=== PATIENT | female | born 1945 | race Caucasian/White ===

== ENCOUNTER 2020-06-02 07:52 | Inpatient (IN) ==
--- NOTE | 2020-05-22 13:05 | PAT Medication Instructions ---
Medication Instructions Date of Service May 22, 2020 Home Medications albuterol sulfate 1 puff INHALATION Q6H PRN aspirin [Aspir-81] 81 mg PO QAM ergocalciferol (vitamin D2) [Vitamin D2] 10 mcg PO QAM ezetimibe 10 mg PO QPM furosemide 40 mg PO Q2D gabapentin 100 mg PO BID hydralazine 50 mg PO BID metoprolol tartrate 25 mg PO BID mycophenolate mofetil 250 mg PO BID ondansetron 4 mg PO Q8H PRN pantoprazole 40 mg PO QAM simvastatin 40 mg PO PM tacrolimus 0.5 mg PO QAM tacrolimus 1 mg PO QPM umeclidinium-vilanterol [Anoro Ellipta] 1 inh INHALATION QAM DO NOT take the morning of surgery ergocalciferol (vitamin D2) [Vitamin D2] 10 mcg PO QAM furosemide 40 mg PO Q2D Take morning of surgery With a small sip of water, OTHERWISE NOTHING TO EAT OR DRINK AFTER MIDNIGHT: albuterol sulfate 1 puff INHALATION Q6H PRN (if needed) aspirin [Aspir-81] 81 mg PO QAM (unless otherwise instructed by surgeon) gabapentin 100 mg PO BID hydralazine 50 mg PO BID metoprolol tartrate 25 mg PO BID mycophenolate mofetil 250 mg PO BID ondansetron 4 mg PO Q8H PRN (if needed) pantoprazole 40 mg PO QAM tacrolimus 0.5 mg PO QAM umeclidinium-vilanterol [Anoro Ellipta] 1 inh INHALATION QAM Take evening before surgery albuterol sulfate 1 puff INHALATION Q6H PRN (if needed) ezetimibe 10 mg PO QPM gabapentin 100 mg PO BID hydralazine 50 mg PO BID metoprolol tartrate 25 mg PO BID mycophenolate mofetil 250 mg PO BID ondansetron 4 mg PO Q8H PRN (if needed) simvastatin 40 mg PO PM tacrolimus 1 mg PO QPM Other Notes If you have any questions please call us at [phone] or [phone] or [phone] or [phone]
--- NOTE | 2020-05-23 13:29 | Anesthesiology Consultation ---
Date of Service May 23, 2020 Assessment & Plan (1) Encounter for pre-operative examination: COVID Status: As of 05/23 assessment, patient denies travel to endemic area, known exposure/sick contacts, or symptoms of COVID19. Patient instructed that they and their household members must follow strict social distancing guidelines, wear a mask in public and avoid travel for 14 days prior to surgery. Preoperative COVID19 testing to be completed prior to surgery per surgeon's arr angements. Patient made aware to self-isolate as much as possible between COVID testing and surgery. *Hx of PONV* Chart Review Chart Review: Acceptable Risk for Surgery (pending surgeon ordered PCP and cardio clearances) and Patient seen in Pre Admission Testing Teaching & Discussion Instructed NPO after midnight before surgery, except medications with 15 cc of water. Medication instructions provided according to the PAT guidelines. History Surgery Operation Date: 06/02/20 10:05 Proposed Procedures p L3-L5 Decompression and Fusion, Left L4-L5 Discectomy; Spinal Cord Monitoring - Phi Vizcarra DO Height/Weight Height: 5 ft 1 in Weight: 63.9 kg Allergies Allergy/AdvReac Type Severity Reaction Status Date / Time No Known Allergies Allergy Verified 05/17/20 15:04 Medications Home Medications Medication Instructions Recorded Confirmed Last Taken albuterol sulfate 1 puff INHALATION Q6H PRN 05/17/20 05/17/20 Unknown aspirin [Aspir-81] 81 mg PO QAM 05/17/20 05/17/20 Unknown ergocalciferol (vitamin D2) 10 mcg PO QAM 05/17/20 05/17/20 Unknown [Vitamin D2] ezetimibe 10 mg PO QPM 05/17/20 05/17/20 Unknown furosemide 40 mg PO Q2D 05/17/20 05/17/20 Unknown gabapentin 100 mg PO BID 05/17/20 05/17/20 Unknown hydralazine 50 mg PO BID 05/17/20 05/17/20 Unknown metoprolol tartrate 25 mg PO BID 05/17/20 05/17/20 Unknown mycophenolate mofetil 250 mg PO BID 05/17/20 05/17/20 Unknown ondansetron 4 mg PO Q8H PRN 05/17/20 05/17/20 Unknown pantoprazole 40 mg PO QAM 05/17/20 05/17/20 Unknown simvastatin 40 mg PO PM 05/17/20 05/17/20 Unknown tacrolimus 0.5 mg PO QAM 05/17/20 05/17/20 Unknown tacrolimus 1 mg PO QPM 05/17/20 05/17/20 Unknown umeclidinium-vilanterol [Anoro 1 inh INHALATION QAM 05/17/20 05/17/20 Unknown Ellipta] Past Medical History Medical History Cancer LUNG-S/P LOBECTOMY 01/2020-NO CHEMO/NO RADIATION Chronic back pain TO LEG Depression History of renal failure Pt reports due to bowel prep that has now been taken off the market. Was on dialysis, now S/P renal transplant 2005. Hyperlipidemia Hypertension SOB (shortness of breath) on exertion 1 FLIGHT Exercise / Class Metabolic Activity III < 4 Walking/Shop/Light housework (Denies CP or SOB with ambulation using wa lker due to leg weakness, cannot do stairs) Past Surgical History Surgical History History of colonoscopy Nausea and vomiting after administration of anesthetic agent S/P lobectomy of lung RIGHT 01/2020 [facility] Transplanted kidney 2005 F/U DR KIRAN CANDELARIO Past Anesthesia History No Hx of Anesthesia Complications (other than PONV) and No Family Hx of Anesthesia Complications History of PONV No Hx of Motion Sickness and History of PONV Social History Smoking Status: Light tobacco smoker Do You Dip or Chew Tobacco: No Smoking End Date: 1 -2 CIGS A DAY Hx Alcohol Use: No Hx Substance Use: No Review of Systems Pt denies any recent chest pain, shortness of breath, palpitations, cough, fever, URI, or uncontrolled acid reflux. Physical Exam Vital Signs BP: 131/81 P: 69bpm SPO2: 97% RA T: 98.1 F R: 16 ENMT Mouth: + dentures and + edentulous Thyromental Distance: < 3.5 Finger Breadths (3) Mallampati Class: III Neck normal visual inspection; neck extension not limited Respiratory normal respiratory effort Auscultation: lungs clear to auscultation bilaterally Cardiovascular Rate/Rhythm: regular rate and regular rhythm (with a few ectopic beats) Heart Sounds: no murmur Vessels: no carotid bruit Extremities: no edema Testing Laboratory Results 05/23/20 14:05 05/23/20 14:05 PT 11.1 Seconds (9.0-12.0) 05/23/20 14:05 INR 1.1 (0.9-1.1) 05/23/20 14:05 APTT 29.8 Seconds (21.0-31.0) 05/23/20 14:05 Blood Type A Positive 05/23/20 14:05 Antibody Screen NEGATIVE 05/23/20 14:05 Electrocardiogram Date: 05/23/20 Findings: + NSR @ (68bpm) Left axis deviation. Possible anterior infarct, age undetermined. Nonspecific ST and T wave abnormality. Chest X-Ray Date: 05/23/20 FINDINGS: Postoperative findings within the right hemithorax with volume loss are noted. This suggests a lobectomy. There is no consolidation or evidence for pulmonary edema. Tenting of the right hemidiaphragm is likely due to volume loss. There is a possible trace right pleural effusion. There is mild cardiomegaly without evidence for pulmonary edema. IMPRESSION: 1. No definite acute cardiopulmonary findings. 2. Postoperative findings within the right hemithorax. Possible small right pleural effusion. Echocardiogram Date: 04/14/20 EF: 55-60% Borderline left ventricle size. The left ventricle has normal systolic function. Normal right ventricular size and function. Mild to moderate aortic regurgitation. Aortic valve area is 2.7 cm and the mean gradient is 3 mmHg. Mild mitral regurgitation. Mild mitral annular calcification. The left atrium and right atrium are both mildly enlarged. Grade 1 diastolic dysfunction.
[2020-05-23 14:36] LABS: Basophils # (auto) 0.02 K/uL (0-0.2); Basophils % (auto) 0.4 %; Eosinophils # (auto) 0.02 K/uL (0-0.5); Eosinophils % (auto) 0.4 %; Hematocrit (blood only) 38.2 % (37-47); Hemoglobin 12.1 g/dL (12.0-16.0); Lymphocytes # (auto) 1.69 K/uL (1.2-3.4); Lymphocytes % (auto) 30.5 %; Mean Corpuscular Hemoglobin 28.3 pg (25-34); Mean Corpuscular Hgb Conc 31.7 g/dL (32-36); Mean Corpuscular Volume 89.3 fL (80-100); Mean Platelet Volume 9.9 fL (7.4-10.4); Monocytes # (auto) 0.69 K/uL (0.11-0.59); Monocytes % (auto) 12.5 %; Neutrophils # (auto) 3.12 K/uL (1.4-6.5); Neutrophils % (auto) 56.2 %; Platelet Count 271 K/uL (130-400); RDW Standard Deviation 55.1 fL (36.4-46.3); Red Blood Count 4.28 M/uL (4.2-5.4); White Blood Count 5.54 K/uL (4.8-10.8)
--- NOTE | 2020-05-23 14:41 | XRay Report ---
XR chest Pre-admission PA/Lat CLINICAL HISTORY: Preoperative evaluation. COMPARISON STUDY: No previous studies for comparison. FINDINGS: Postoperative findings within the right hemithorax with volume loss are noted. This suggest s a lobectomy. There is no consolidation or evidence for pulmonary edema. Tenting of the right hemidi aphragm is likely due to volume loss. There is a possible trace right pleural effusion. There is mild cardiomegaly without evidence for pulmonary edema. IMPRESSION: 1. No definite acute cardiopulmonary findings. 2. Postoperative findings within the right hemithorax. Possible small right pleural effusion. ACT 112: Negative or not required by law. Electronically signed by: Ramin Rowan M.D. 05/23/2020 2:40 PM
[2020-05-23 14:52] LABS: INR 1.1 (0.9-1.1); Partial Thromboplastin Ratio 1.1; Partial Thromboplastin Time 29.8 Seconds (21.0-31.0); Prothrombin Time 11.1 Seconds (9.0-12.0)
[2020-05-23 16:12] LABS: BUN Creatinine Ratio 17.1 (10-20); Calcium 9.5 mg/dl (8.5-10.1); Est GFR (African American) 67.5; Est GFR (Non-African American) 58.3; Potassium 4.4 mmol/L (3.5-5.1)
--- NOTE | 2020-05-24 05:58 | Electrocardiogram Report ---
Test Reason : Blood Pressure : / mmHG Vent. Rate : 068 BPM Atrial Rate : 068 BPM P-R Int : 132 ms QRS Dur : 074 ms QT Int : 418 ms P-R-T Axes : 055 -47 118 degrees QTc Int : 444 ms Normal sinus rhythm Left axis deviation Possible Anterior infarct , age undetermined Nonspecific ST and T wave abnormality Abnormal ECG No previous ECGs available Confirmed by Harpal Marshall ([id number]) on 05/24/2020 5:58:05 AM Referred By: Phi Vizcarra Confirmed By:Harpal Marshall
[~2020-06-02 07:52] MED LIST: ACETAMINOPHEN 500 MG TAB PO SCH; CEFAZOLIN 1000MG 1,000 MG/7.5 ML SYR IV SCH; CeleBREX 200 MG CAP PO SCH; GABAPENTIN 300 MG CAP PO SCH; LR 15ML/HR IV SCH
--- NOTE | 2020-06-02 08:41 | History & Physical Bridge Note ---
Date of Service June 02, 2020 History & Physical Bridge Note I have examined the patient, reviewed the History & Physical and in the interval since the performance of the History & Physical I have noted the following changes of clinical significance: no changes noted
--- NOTE | 2020-06-02 08:42 | History & Physical Report ---
Date of Service June 02, 2020 Assessment & Plan (1) Neurogenic claudication due to lumbar spinal stenosis: Admission and Anticipated Discharge Date Admission Date: L3 to L5 decompression fusion, left L4-5 discectomy History of Present Illness Chief Complaint: Back and leg pain Primary Care Provider: Rik Flood MD This is a 75-year-old presents with chronic persistent back and leg pain after failing course of non-care is here for surgical intervention. Allergies Allergy/AdvReac Type Severity Reaction Status Date / Time No Known Allergies Allergy Verified 06/02/20 08:18 Home Medications Home Medications Medication Instructions Recorded Confirmed Type albuterol sulfate 1 puff INHALATION Q6H PRN 05/17/20 05/17/20 History aspirin [Aspir-81] 81 mg PO QAM 05/17/20 06/02/20 History ergocalciferol (vitamin D2) 10 mcg PO QAM 05/17/20 06/02/20 History [Vitamin D2] ezetimibe 10 mg PO QPM 05/17/20 06/02/20 History furosemide 40 mg PO Q2D 05/17/20 06/02/20 History gabapentin 100 mg PO BID 05/17/20 06/02/20 History hydralazine 50 mg PO BID 05/17/20 06/02/20 History metoprolol tartrate 25 mg PO BID 05/17/20 06/02/20 History mycophenolate mofetil 250 mg PO BID 05/17/20 06/02/20 History simvastatin 40 mg PO PM 05/17/20 06/02/20 History tacrolimus 0.5 mg PO QAM 05/17/20 06/02/20 History tacrolimus 1 mg PO QPM 05/17/20 06/02/20 History umeclidinium-vilanterol [Anoro 1 inh INHALATION QAM 05/17/20 06/02/20 History Ellipta] Past Med/Surg History Medical History Cancer LUNG-S/P LOBECTOMY 01/2020-NO CHEMO/NO RADIATION Chronic back pain TO LEG Depression History of renal failure Pt reports due to bowel prep that has now been taken off the market. Was on dialysis, now S/P renal transplant 2005. Hyperlipidemia Hypertension SOB (shortness of breath) on exertion 1 FLIGHT Surgical History History of colonoscopy Nausea and vomiting after administration of anesthetic agent S/P lobectomy of lung RIGHT 01/2020 [facility] Transplanted kidney 2005 F/U DR KIRAN CANDELARIO Social History Smoking Status: Light tobacco smoker Smoking End Date: 1 -2 CIGS A DAY; Second Hand Exposure: Yes (SPOUSE SMOKED); Do You Dip or Chew Tobacco: No; Hx Alcohol Use: No Hx Substance Use: No Preferred Language: Surinamese Communication Ability: Effective Tongue Stitcher Required: No Beliefs That Will Affect Care: None Current Living Situation: Spouse Current Living Situation Comment: LIVES WITH SPOUSE Other Information That Helps Us Care for You: No Feels Safe at Home: Yes Safety Concerns: Feels Safe At This Time Physical Exam Physical Exam: Patient is alert and oriented neurologically intact. Lungs clear to auscultation. Heart regular rate and rhythm.
[2020-06-02] MEDS ORDERED: METOCLOPRAMIDE HCL INJ 5 MG/ML 2 ML VIAL IV PRN ×2 (08:52→12:37)
[2020-06-02] MEDS ORDERED: ePHEDrine sulfate 50 MG/ML AMP IV PRN (08:52)
[2020-06-02] MEDS ORDERED: ATROPINE SULFATE 0.1 MG/ML 10ML SYR IV PRN (08:52)
[2020-06-02] MEDS ORDERED: PROMETHAZINE HCL 12.5 MG in SODIUM CHLORIDE 0.9% 50 ML IV PRN ×2 (08:52→12:37)
[2020-06-02] MEDS ORDERED: HYDROmorphone INJ 1 MG/ML SYRINGE IV PRN ×2 (08:52→12:37)
[2020-06-02] MEDS ORDERED: ONDANSETRON INJ 2 MG/ML 2 ML VIAL IV PRN ×2 (08:52→12:37)
[2020-06-02] MEDS ORDERED: BUPIVACAINE/EPINEPHRINE 0.25% 1:200,000 30 ML VIAL ONE (08:56)
[2020-06-02] MEDS ORDERED: BACITRACIN INJ 50,000 UNIT VIAL ONE (08:57)
[2020-06-02] MEDS ORDERED: PROPOFOL IV EMULSION 10 MG/ML 20 ML VIAL IV ONE (09:06)
[2020-06-02] MEDS ORDERED: LIDOCAINE HCL 2% 2 ML VIAL/AMP(20MG/ML) INFIL ONE (09:06)
[2020-06-02] MEDS ORDERED: MIDAZOLAM HCL 1 MG/ML 2ML VIAL ONE (09:06)
[2020-06-02] MEDS ORDERED: fentaNYL citrate 100 MCG/2 ML VIAL ONE ×2 (09:06)
[2020-06-02] MEDS ORDERED: ROCURONIUM BROMIDE 10 MG/ML 5 ML VIAL IV ONE (09:07)
[2020-06-02] MEDS ORDERED: FLOSEAL HEMOSTATIC MATRIX 10ML TOP ONE (09:56)
[2020-06-02] MEDS ORDERED: ONDANSETRON INJ 2 MG/ML 2 ML VIAL ONE (11:08)
[2020-06-02] MEDS ORDERED: GLYCOPYRROLATE 0.2 MG/ML VIAL ONE (11:08)
[2020-06-02] MEDS ORDERED: NEOSTIGMINE METHYLSULFATE 1 MG/ML 10ML VIAL ONE (11:08)
--- NOTE | 2020-06-02 11:14 | Operative Report ---
Post Operative Report Pre & Post Diagnosis Operation Date: 06/02/20 09:15 Pre-Op Diagnosis: Lumbar spinal stenosis with spondylolisthesis Post-Op Diagnosis: Same I identified the patient and participated in the time-out.: Yes Procedure Operation Date: 06/02/20 09:15 Actual Procedures #1 lumbar decompression with bilateral medial facetectomy foraminotomy L3-4 and L4-5. #2 posterior spinal fusion L3-4. #3 placement posterior instrumentation L3-4 L4-5. #4 interbody fusion L4-5. #5 placement peek cage 12 x 22 mm at L4-5 per #6 placement of locally harvested morselized autograft in the posterior gutters per #7 placement infuse collagen sponge, master graft and posterior gutters ostial amp interbody space. Surgeon Phi Vizcarra, Automated Manufacturing Instructor Shaggy Tejeda Estimated Blood Loss 100 Findings Consistent with Post-Op Diagnosis Specimens None Indications This is a 75-year-old female who presents with above-mentioned diagnosis after failing course of nonoperative care is here for dementia procedure. Description of Procedure Patient was met with identified informed consent obtained. Patient was then taken to the operative suite underwent an patient placed in a prone position the Jimmy table on top [place] frame. All bony prominences well-padded eyes inspected to ensure no external pressure placed upon them. This point the lumbar spine was prepped and draped in a sterile fashion. Sharp dissection the assistance pericardial was performed down to and exposing the lamina and transverse processes of L3-L4-L5 bilaterally. From a caudal cephalad fashion complete laminectomy of L4 and L3 was performed including bilateral medial facetectomies and foraminotomies noting evidence of far lateral disc herniation L4-5 on the left. After complete decompression pedicle screws were then placed in L3-L4 and L5 bilaterally with assistance of fluoroscopy and appropriate size clarissa placed. By way of a trans-foramen approach on the left complete discectomy was performed endplates coated to subcortical bleeding bone and a 12 x 22 mm peek cage filled with osteo-bone graft tapped in position. The rods were then locked in final position bilaterally. Transverse processes of L3 and L4 and L5 bur to subcortical bleeding bone. Infuse collagen sponge master graft local autograft was placed in posterior gutters. 15 round JESSICA drain inserted. Incision was then closed with 1 Vicryl the fascia 2-0 Vicryl subcutaneously and 4 Monocryl for final skin closure. Steri-Strip sterile dressings placed. Patient waken taken to PACU stable condition. Please note spinal cord monitoring visualized at the procedure no changes noted. Lastly Shaggy brock was present throughout the entire surgery involved the patient positioning complex portions of the surgery and final skin closure. I attest to the content of the Intraoperative Record and any orders documented therein. Any exceptions are noted below.
--- NOTE | 2020-06-02 11:41 | Fluoroscopy Report ---
FL lumbar spine 2-3V CLINICAL HISTORY: L3-5 DECOMPRESSION/FUSION/INTERBODY COMPARISON STUDY: None. FLUOROSCOPY TIME: 20 seconds. FINDINGS: 2 fluoroscopic spot images of the lumbar spine demonstrate posterior decompression fusion w ith pedicle screws and rods from L3 through L5. Hardware appears intact. IMPRESSION: Fluoroscopy provided for a L3-L5 posterior decompression and fusion ACT 112: Negative or not required by law. Electronically signed by: Barry Macdonald M.D. 06/02/2020 11:40 AM
[2020-06-02] MEDS: fentaNYL citrate 100 MCG/2 ML VIAL IV PRN ×2 (11:42→11:51)
--- NOTE | 2020-06-02 12:16 | Anesthesiology Progress Note ---
Date of Service June 02, 2020 Anesthesia Post Procedure Vital Signs Vital Signs: Temp Pulse Pulse Resp BP Pulse Ox 06/02/20 12:10 36.6 C 85 21 128/83 97 06/02/20 12:00 89 12 125/65 98 06/02/20 11:50 91 H 12 124/66 98 06/02/20 11:40 88 12 127/67 100 06/02/20 11:33 36.3 C L 90 12 135/75 100 06/02/20 08:49 36.8 C 101 H 20 170/99 H 96 Pain Intensity Back: Pain Intensity: 4 Transfer of Care Handoff Completed per policy Notes Mental Status: alert / awake / arousable and participated in evaluation Patient Amnestic to Procedure: Yes Nausea / Vomiting: adequately controlled Pain: adequately controlled Airway Patency, RR, SpO2: stable & adequate BP & HR: stable & adequate Hydration State: stable & adequate Anesthetic Complications: no major complications apparent
[2020-06-02] MEDS ORDERED: ACETAMINOPHEN 500 MG TAB PO PRN (12:37)
[2020-06-02] MEDS ORDERED: LORazepam 0.5 MG/1 ML VIAL IV PRN (12:37)
[2020-06-02] MEDS ORDERED: bisacodyL 10 MG SUPP PR PRN (12:37)
[2020-06-02] MEDS ORDERED: ALUMINUM/MAGNESIUM SUSP 30 ML UDC PO PRN (12:37)
[2020-06-02] MEDS ORDERED: LORazepam 0.5 MG TAB PO PRN (12:37)
[2020-06-02] MEDS ORDERED: FAMOTIDINE 20 MG TAB PO PRN (12:37)
[2020-06-02] MEDS ORDERED: ACETAMINOPHEN 1,000 MG/100 ML VIAL IV PRN (12:37)
[2020-06-02] MEDS ORDERED: DO NOT ADMINISTER FLU VACCINE PRN (12:37)
[2020-06-02] MEDS ORDERED: DO NOT ADMINISTER PNEUMOCOCCAL VACCINE PRN (12:37)
[2020-06-02] MEDS ORDERED: HYDROmorphone INJ 0.5 MG/0.5 ML SYR IV PRN (12:37)
[2020-06-02] MEDS ORDERED: SOD PHOSPHATE/SOD BIPHOSPHATE ENEMA 132 ML BTL PR PRN (12:37)
[2020-06-02] MEDS ORDERED: MAGNESIUM HYDROXIDE SUSP 30 ML UDC PO PRN (12:37)
[2020-06-02] MEDS ORDERED: ONDANSETRON 4 MG OD TAB PO PRN (12:37)
[2020-06-02] MEDS ORDERED: NALOXONE HCL 0.4 MG/1 ML VIAL/CARP IV PRN (12:37)
[2020-06-02] MEDS: SODIUM CHLORIDE 0.9% 1000ML 1,000 ML IV SCH ×2 (13:07→22:31)
[2020-06-02] MEDS: OXYCODONE HCL IR 5 MG TAB (IMMEDIATE RELEASE) PO PRN ×2 (13:16→17:21)
[2020-06-02] MEDS ORDERED: ALBUTEROL 0.083% NEBU SOLN 3 ML VIAL NEB PRN (13:18)
--- NOTE | 2020-06-02 13:26 | Consultation ---
Date of Consultation June 02, 2020 Assessment & Plan (1) Status post lumbar surgery: Post op day# 0 S/P L3-L5 decompression and fusion by Dr Vizcarra EB#250ml -pain management per ortho -wound management per ortho -PT/OT as appropriate -DVT prophylaxis per ortho -incentive spirometry -monitor H&H for acute blood loss anemia; pre-op Hgb: 12 (2) Kidney transplant status: S/P Right kidney transplant in 2005 in [place]. 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 Pt did not have chemo or radiation per patient preference. Follows with [facility] -Not on oxygen at home -Continue home inhalers, albuterol nebs prn (4) Hypertension: H/O Labile HTN Post op BP: 150/78. Pt having some discomfort. -Continue hydralazine, metoprolol tartrate -Hold furosemide for now - Pain control and Monitor BP (5) Hyperlipidemia: -Continue simvastatin DVT Prophylaxis -SCDs per ortho Disposition per primary service Follows with Dr Rik Flood in [place] for routine care Pt was seen and care coordinated with Dr Alvarez. See addendum Thank you for this consultation. We will follow the patient with you during their hospital stay. You can reach a [facility] via pager @ [phone]. Supervising Physician Co-Signing Physician Notes Pt was seen and examined. Agreed with Erika BELLO exam, assessment and plan. 75 y/o Female with PMH HTN, HLD, lung cancer s/p right upper lobectomy in 01/2020, h/o right kidney transplant in 2005, s/p decompression and fusion L3-L5 performed today by Dr. Vizcarra. Denies any chest pain, palpitation and SOB. No postop complication. Continue pain management as per ortho. PT/OT eval. Monitor H/H. Fall precaution. MD Kim History of Present Illness Requesting Physician: Dr Vizcarra Reason for Consultation: Post op medical management Attending Physician: Phi Vizcarra DO History of Present Illness Pt is 75 y/o F with PMH HTN, HLD, lung cancer s/p right upper lobectomy in 01/2020 (without chemo or radiation per patient preference), h/o right kidney transplant in 2005 seen in medical consultation s/p decompression and fusion L3-L5 today by Dr. Vizcarra. Postop patient is reporting some back pain. Denies any lower extremity pain or paresthesias. Denies fever/chills, diaphoresis, N/V/D/C, ROBLES, dizziness, syncope, neck pain, CP, SOB, orthopnea, palpitations, cough, sore throat, choking, otalgia, rhinorrhea, abdominal pain, paresthesias, extremity edema, rashes, urinary symptoms. Allergies Allergy/AdvReac Type Severity Reaction Status Date / Time No Known Allergies Allergy Verified 06/02/20 08:18 Home Medications Home Medications Medication Instructions Recorded Confirmed Type albuterol sulfate 1 puff INHALATION Q6H PRN 05/17/20 05/17/20 History aspirin [Aspir-81] 81 mg PO QAM 05/17/20 06/02/20 History ergocalciferol (vitamin D2) 10 mcg PO QAM 05/17/20 06/02/20 History [Vitamin D2] ezetimibe 10 mg PO QPM 05/17/20 06/02/20 History furosemide 40 mg PO Q2D 05/17/20 06/02/20 History gabapentin 100 mg PO BID 05/17/20 06/02/20 History hydralazine 50 mg PO BID 05/17/20 06/02/20 History metoprolol tartrate 25 mg PO BID 05/17/20 06/02/20 History mycophenolate mofetil 250 mg PO BID 05/17/20 06/02/20 History simvastatin 40 mg PO PM 05/17/20 06/02/20 History tacrolimus 0.5 mg PO QAM 05/17/20 06/02/20 History tacrolimus 1 mg PO QPM 05/17/20 06/02/20 History umeclidinium-vilanterol [Anoro 1 inh INHALATION QAM 05/17/20 06/02/20 History Ellipta] Patient History Medical History (Updated 06/02/20 @ 13:37 by Erika Montano PA-C) Cancer LUNG-S/P LOBECTOMY 01/2020-NO CHEMO/NO RADIATION Chronic back pain TO LEG Depression History of renal failure Pt reports due to bowel prep that has now been taken off the market. Was on dialysis, now S/P renal transplant 2005. Hyperlipidemia Hypertension Lung cancer SOB (shortness of breath) on exertion 1 FLIGHT Surgical History (Updated 06/02/20 @ 13:37 by Erika Montano PA-C) History of colonoscopy Kidney transplant status Nausea and vomiting after administration of anesthetic agent S/P lobectomy of lung RIGHT 01/2020 [facility] Transplanted kidney 2005 F/U DR KIRAN CANDELARIO Family History (Updated 06/02/20 @ 13:35 by Erika Montano PA-C) Other Cancer Diabetes Heart disease Social History Smoking Status: Light tobacco smoker Smoking End Date: 1 -2 CIGS A DAY; Second Hand Exposure: Yes (SPOUSE SMOKED); Do You Dip or Chew Tobacco: No; Hx Alcohol Use: No Hx Substance Use: No Preferred Language: Bengali Communication Ability: Effective Seed Potato Cutter Required: No Beliefs That Will Affect Care: None Current Living Situation: Spouse Current Living Situation Comment: LIVES WITH SPOUSE Other Information That Helps Us Care for You: No Feels Safe at Home: Yes Safety Concerns: Feels Safe At This Time Review of Systems Review of Systems: All systems reviewed & are unremarkable except as noted in HPI & below Physical Exam Physical Exam: General: no distress, chronic ill appearing, WDWN Head: normocephalic, atraumatic Eyes: conjunctiva non-injected, anicteric ENT: normal inspection external ears, nose, mucous membranes moist Neck: supple, trachea midline Lungs: clear, diminished breath sounds RUL, no respiratory distress, no wheezing/rhonchi/rales CV: RRR, no murmur, no pretibial edema Abd: normal BS, soft, non-tender Ext: no cyanosis, no calf tenderness; bilateral pedal pushes and pulls intact bilaterally, distal pulses intact bilaterally, sensation to light touch intact Neuro: A&O x 3, no focal deficits noted, normal affect Skin: warm, dry Results & Data ([facility]) Vital Signs (Past 12 Hours) Vital Signs Temp Pulse Pulse Pulse Resp BP Pulse Ox 06/02/20 13:08 36.4 C L 74 18 178/81 H 100 06/02/20 12:30 36.5 C 79 17 150/78 H 99 06/02/20 12:10 36.6 C 85 21 128/83 97 06/02/20 12:00 89 12 125/65 98 06/02/20 11:50 91 H 12 124/66 98 06/02/20 11:40 88 12 127/67 100 06/02/20 11:33 36.3 C L 90 12 135/75 100 06/02/20 08:49 36.8 C 101 H 20 170/99 H 96
[2020-06-02] MEDS: CEFAZOLIN 1000MG 1,000 MG/7.5 ML SYR IV SCH ×2 (16:54→23:45)
[2020-06-02] MEDS: GABAPENTIN 100 MG CAP PO SCH (19:56)
[2020-06-02] MEDS: TACROLIMUS 1 MG CAP PO SCH (19:56)
[2020-06-02] MEDS: MYCOPHENOLATE MOFETIL 250 MG CAP PO SCH (19:56)
[2020-06-02] MEDS: METOPROLOL TARTRATE 25 MG TAB PO SCH (19:56)
[2020-06-02] MEDS: HydrALAZINE TAB 50 MG TAB PO SCH (19:56)
[2020-06-02] MEDS: DOCUSATE SODIUM/SENNA 50/8.6MG TAB PO SCH (19:57)
[2020-06-02] MEDS: EZETIMIBE 10 MG TABLET PO SCH (19:57)
[2020-06-02] MEDS: SIMVASTATIN 40 MG TAB PO SCH (19:58)
[2020-06-02] MEDS ORDERED: COUGH DROP (SUGAR FREE) LOZ 24 LOZ/1 BOX BUCCAL PRN (23:58)
[2020-06-03 00:25] LABS: BUN Creatinine Ratio 24.7 (10-20); Creatinine Clr Calc Pharmacy 49.4 ml/min; Est GFR (African American) 78.8; Potassium 4.8 mmol/L (3.5-5.1)
[2020-06-03 00:42] LABS: Albumin Level 2.4 gm/dl (3.4-5.0)
[2020-06-03] MEDS: OXYCODONE HCL IR 5 MG TAB (IMMEDIATE RELEASE) PO PRN ×3 (04:09→20:08)
[2020-06-03] MEDS: POLYETHYLENE (MIRALAX) 17 GM PACK PO SCH ×3 (05:36→17:08)
[2020-06-03 05:49] LABS: Hemoglobin 8.8 g/dL (12.0-16.0); Immature Granulocytes # (auto) 0.01 K/uL (0.00-0.02); Immature Granulocytes % (auto) 0.1 %; Lymphocytes # (auto) 0.89 K/uL (1.2-3.4); Lymphocytes % (auto) 9.7 %; Mean Corpuscular Hemoglobin 28.9 pg (25-34); Mean Corpuscular Hgb Conc 32.6 g/dL (32-36); Mean Corpuscular Volume 88.8 fL (80-100); Mean Platelet Volume 10.6 fL (7.4-10.4); Monocytes # (auto) 1.09 K/uL (0.11-0.59); Monocytes % (auto) 11.9 %; Neutrophils # (auto) 7.15 K/uL (1.4-6.5); Neutrophils % (auto) 78.3 %; Platelet Count 176 K/uL (130-400); RDW Coefficient of Variation 16.9 % (11.5-14.5); RDW Standard Deviation 55.8 fL (36.4-46.3); Red Blood Count 3.04 M/uL (4.2-5.4); White Blood Count 9.14 K/uL (4.8-10.8)
[2020-06-03 06:09] LABS: BUN Creatinine Ratio 24.7 (10-20); Calcium 7.6 mg/dl (8.5-10.1); Creatinine Clr Calc Pharmacy 51.9 ml/min; Est GFR (African American) 83.6; Est GFR (Non-African American) 72.1; Potassium 4.8 mmol/L (3.5-5.1)
[2020-06-03] MEDS ORDERED: SODIUM CHLORIDE 0.9% 1000ML 1,000 ML IV ONE (06:36)
--- NOTE | 2020-06-03 08:10 | Anesthesiology Progress Note ---
Date of Service June 03, 2020 Anesthesia Post Procedure Vital Signs Vital Signs: Temp Pulse Pulse Pulse Pulse Resp BP 06/03/20 07:40 37.1 C 68 18 137/73 06/03/20 03:41 36.4 C L 73 16 142/84 H 06/02/20 23:03 36.8 C 74 16 153/86 H 06/02/20 19:52 93 H 135/80 06/02/20 19:29 36.6 C 86 18 150/78 H 06/02/20 15:31 36.6 C 74 16 157/80 H 06/02/20 14:26 36.4 C L 77 18 142/74 H 06/02/20 13:31 36.6 C 72 18 159/80 H 06/02/20 13:08 36.4 C L 74 18 178/81 H 06/02/20 12:30 36.5 C 79 17 150/78 H 06/02/20 12:10 36.6 C 85 21 128/83 06/02/20 12:00 89 12 125/65 06/02/20 11:50 91 H 12 124/66 06/02/20 11:40 88 12 127/67 06/02/20 11:33 36.3 C L 90 12 135/75 06/02/20 08:49 36.8 C 101 H 20 170/99 H Pulse Ox 06/03/20 07:40 92 06/03/20 03:41 94 06/02/20 23:03 94 06/02/20 19:52 06/02/20 19:29 98 06/02/20 15:31 100 06/02/20 14:26 100 06/02/20 13:31 99 06/02/20 13:08 100 06/02/20 12:30 99 06/02/20 12:10 97 06/02/20 12:00 98 06/02/20 11:50 98 06/02/20 11:40 100 06/02/20 11:33 100 06/02/20 08:49 96 Pain Intensity Back: Pain Intensity: 6 Notes Mental Status: alert / awake / arousable Patient Amnestic to Procedure: Yes Nausea / Vomiting: adequately controlled Pain: improving with treatment Airway Patency, RR, SpO2: stable & adequate BP & HR: stable & adequate Hydration State: stable & adequate Anesthetic Complications: no major complications apparent and Pt Satisfied with anesthetic care
[2020-06-03] MEDS: TACROLIMUS 0.5 MG CAP PO SCH (08:59)
[2020-06-03] MEDS: MYCOPHENOLATE MOFETIL 250 MG CAP PO SCH ×2 (08:59→20:09)
[2020-06-03] MEDS: ASPIRIN 81 MG ECTAB PO SCH (08:59)
[2020-06-03] MEDS: HydrALAZINE TAB 50 MG TAB PO SCH ×2 (08:59→20:10)
[2020-06-03] MEDS: UMECLIDINIUM/VILANTEROL 62.5/25MCG 7 PUFFS/INHALER INH SCH (08:59)
[2020-06-03] MEDS: GABAPENTIN 100 MG CAP PO SCH ×2 (08:59→20:10)
[2020-06-03] MEDS: METOPROLOL TARTRATE 25 MG TAB PO SCH ×2 (08:59→20:10)
[2020-06-03] MEDS ORDERED: FUROSEMIDE 40 MG TAB PO SCH (09:00)
[2020-06-03] MEDS ORDERED: ERGOCALCIFEROL PO SCH (09:00)
--- NOTE | 2020-06-03 10:03 | Orthopedic Progress Note ---
Date of Service June 03, 2020 Assessment & Plan (1) Neurogenic claudication due to lumbar spinal stenosis: Admission and Anticipated Discharge Date Admission Date: June 02, 2020 At this time initiate physical therapy occupational therapy and see how she progresses throughout the weekend. We will determine whether she is okay to return home or requires rehab. Subjective Back pain controlled leg pain improved. Physical Exam Physical Exam: Patient is in bed. She appears comfortable. Good strength testing. Results & Data ([facility]) Vital Signs (Past 12 Hours) Vital Signs Temp Pulse Pulse Resp BP Pulse Ox 06/03/20 07:40 37.1 C 68 18 137/73 92 06/03/20 03:41 36.4 C L 73 16 142/84 H 94 06/02/20 23:03 36.8 C 74 16 153/86 H 94
--- NOTE | 2020-06-03 15:55 | Hospitalist Progress Note ---
Date of Service June 03, 2020 Assessment & Plan (1) Status post lumbar surgery: Post op day# 1 S/P L3-L5 decompression and fusion by Dr Vizcarra Stable overall Monitor hemoglobin Transfuse for hemoglobin below 7 (2) Acute blood loss anemia: Hemoglobin 8.8 Repeat hemoglobin tomorrow Transfuse for hemoglobin below 7 (3) Hypertension: H/O Labile HTN -Continue hydralazine, metoprolol tartrate -Hold furosemide for now to prevent hypotension, dehydration (4) Kidney transplant status: S/P Right kidney transplant in 2005 in [place]. Currently following with nephrology in [place] Pre-op BUN: 16, Cr: 0.96, GFR: 58 Renal function stable Dysuria likely secondary to Huertas catheter removal Increase IV NSS to 125 cc/h Monitor urine output Bladder scan PRN (5) Lung cancer: H/O squamous cell lung cancer s/p right upper lobectomy in 01/2020. Pt did not have chemo or radiation per patient preference. Follows with [facility] -Not on oxygen at home -Continue home inhalers, albuterol nebs prn (6) Hyperlipidemia: -Continue simvastatin DVT Prophylaxis -SCDs per ortho Follows with Dr Rik Flood in [place] for routine care Thank you for this consultation. We will follow the patient with you during their hospital stay. You can reach a member of the [facility] Hospitalist Team 14/04 via pager @ [phone]. Admission and Anticipated Discharge Date Admission Date: June 02, 2020 Subjective Follow-up for status post back surgery next Seen resting in bed, sitting up, not in distress, comfortable States she feels fine overall No back pain adequately controlled Reports difficulty with urination, Huertas catheter just removed this morning No abdominal pain, nausea vomiting or fevers or chills No chest pain, palpitations, dizziness, headache No other symptoms Review of Systems Review of Systems: All systems reviewed & are unremarkable except as noted in HPI & below Physical Exam Physical Exam: General- oriented x 3, not in distress, speaks in sentences with no effort or accessory muscle use Eyes- anicteric Neck- no JVD Lungs- clear breath sounds bilaterally, crackles, no wheezing Heart- normal rate, regular rhythm; no murmurs Abdomen- normal bowel sounds, nondistended, soft, nontender Extremities- no pretibial edema, no calf tenderness Neuro- alert, oriented x 3; no gross focal neurologic deficits Skin- warm & dry Results & Data Results & Data ([facility]) Vital Signs (Past 12 Hours) Vital Signs Temp Pulse Pulse Resp BP Pulse Ox 06/03/20 15:28 36.8 C 66 18 152/75 H 94 06/03/20 11:44 36.9 C 68 18 129/77 95 06/03/20 07:40 37.1 C 68 18 137/73 92 Laboratory Results Laboratory Results - last 24 hr 06/02/20 06/03/20 06/03/20 23:29 05:19 05:19 WBC 9.14 RBC 3.04 L Hgb 8.8 L Hct 27.0 L MCV 88.8 MCH 28.9 MCHC 32.6 RDW Std Deviation 55.8 H RDW Coeff of Latesha 16.9 H Plt Count 176 MPV 10.6 H Immature Gran % (Auto) 0.1 Neut % (Auto) 78.3 Lymph % (Auto) 9.7 [place] % (Auto) 11.9 Eos % (Auto) 0.0 Baso % (Auto) 0.0 Neut # (Auto) 7.15 H Lymph # (Auto) 0.[address] [place] # (Auto) 1.09 H Eos # (Auto) 0.00 Baso # (Auto) 0.00 Immature Gran # (Auto) 0.01 Sodium 138 138 Potassium 4.8 4.8 Chloride 108 H 107 Carbon Dioxide 26 25 Anion Gap 4.0 5.0 BUN 21 H 20 H Creatinine 0.84 0.80 Est Cr Clr Drug Dosing 49.4 51.9 Est GFR ( Amer) 78.8 83.6 Est GFR (Non-Af Amer) 68.0 72.1 BUN/Creatinine Ratio 24.7 H 24.7 H Glucose 168 H 131 H Calcium 8.0 L 7.6 L Albumin 2.4 L
[2020-06-03] MEDS: SODIUM CHLORIDE 0.9% 1000ML 1,000 ML IV SCH (17:08)
[2020-06-03] MEDS: TACROLIMUS 1 MG CAP PO SCH (20:09)
[2020-06-03] MEDS: DOCUSATE SODIUM/SENNA 50/8.6MG TAB PO SCH (20:11)
[2020-06-03] MEDS: EZETIMIBE 10 MG TABLET PO SCH (20:11)
[2020-06-03] MEDS: SIMVASTATIN 40 MG TAB PO SCH (20:11)
[2020-06-03] MEDS: TRAMADOL HCL 50 MG TABLET PO PRN (22:15)
[2020-06-04] MEDS: POLYETHYLENE (MIRALAX) 17 GM PACK PO SCH ×5 (00:08→23:47)
[2020-06-04] MEDS: SODIUM CHLORIDE 0.9% 1000ML 1,000 ML IV SCH ×3 (01:13→17:01)
[2020-06-04] MEDS: TRAMADOL HCL 50 MG TABLET PO PRN (05:47)
[2020-06-04 05:57] LABS: Basophils # (auto) 0.01 K/uL (0-0.2); Basophils % (auto) 0.1 %; Eosinophils # (auto) 0.04 K/uL (0-0.5); Eosinophils % (auto) 0.5 %; Hematocrit (blood only) 26.9 % (37-47); Hemoglobin 8.5 g/dL (12.0-16.0); Immature Granulocytes # (auto) 0.01 K/uL (0.00-0.02); Immature Granulocytes % (auto) 0.1 %; Lymphocytes # (auto) 1.49 K/uL (1.2-3.4); Lymphocytes % (auto) 19.6 %; Mean Corpuscular Hemoglobin 28.4 pg (25-34); Mean Corpuscular Hgb Conc 31.6 g/dL (32-36); Mean Platelet Volume 10.5 fL (7.4-10.4); Monocytes # (auto) 1.16 K/uL (0.11-0.59); Monocytes % (auto) 15.2 %; Neutrophils % (auto) 64.5 %; Platelet Count 156 K/uL (130-400); RDW Coefficient of Variation 17.3 % (11.5-14.5); RDW Standard Deviation 56.9 fL (36.4-46.3); Red Blood Count 2.99 M/uL (4.2-5.4); White Blood Count 7.61 K/uL (4.8-10.8)
[2020-06-04 06:21] LABS: BUN Creatinine Ratio 34.7 (10-20); Calcium 8.4 mg/dl (8.5-10.1); Est GFR (African American) 102.2; Est GFR (Non-African American) 88.2; Potassium 4.8 mmol/L (3.5-5.1)
[2020-06-04] MEDS: MYCOPHENOLATE MOFETIL 250 MG CAP PO SCH ×2 (07:35→19:59)
[2020-06-04] MEDS: ASPIRIN 81 MG ECTAB PO SCH (07:36)
[2020-06-04] MEDS: TACROLIMUS 0.5 MG CAP PO SCH (07:36)
[2020-06-04] MEDS: HydrALAZINE TAB 50 MG TAB PO SCH ×2 (07:37→19:59)
[2020-06-04] MEDS: METOPROLOL TARTRATE 25 MG TAB PO SCH ×2 (07:38→20:00)
[2020-06-04] MEDS: GABAPENTIN 100 MG CAP PO SCH ×2 (07:38→20:04)
[2020-06-04] MEDS: DEXAMETHASONE SOD PHOSPHATE 8 MG in SYRINGE 0 ML IV SCH (07:39)
[2020-06-04] MEDS: UMECLIDINIUM/VILANTEROL 62.5/25MCG 7 PUFFS/INHALER INH SCH (07:40)
--- NOTE | 2020-06-04 11:14 | Orthopedic Progress Note ---
Date of Service June 04, 2020 Assessment & Plan (1) Neurogenic claudication due to lumbar spinal stenosis: Admission and Anticipated Discharge Date Admission Date: June 02, 2020 This time we will continue physical therapy monitor GI output consider rehab placement tomorrow. Subjective Patient's back pain is controlled leg symptoms improved. She is tolerating physical therapy. Physical Exam Physical Exam: Patient is good strength testing was comfortable. Results & Data ([facility]) Vital Signs (Past 12 Hours) Vital Signs Temp Pulse Resp BP Pulse Ox 06/04/20 08:05 37.1 C 68 18 128/75 95 06/03/20 23:16 37.1 C 67 18 121/72 94
--- NOTE | 2020-06-04 16:46 | Hospitalist Progress Note ---
Date of Service June 04, 2020 Assessment & Plan (1) Status post lumbar surgery: Post op day# 2 S/P L3-L5 decompression and fusion by Dr Vizcarra Stable overall Monitor hemoglobin Transfuse for hemoglobin below 7 (2) Acute blood loss anemia: Hemoglobin 8.8 Hg stable at ~8 Transfuse for hemoglobin below 7 (3) Hypertension: H/O Labile HTN -Continue hydralazine, metoprolol tartrate -Hold furosemide for now to prevent hypotension, dehydration - will add PRN Hydralazine (4) Kidney transplant status: S/P Right kidney transplant in 2005 in [place]. Currently following with nephrology in [place] Pre-op BUN: 16, Cr: 0.96, GFR: 58 Renal function stable Dysuria likely secondary to Huertas catheter removal Bladder scan in the afternoon 250, repeat Bladder scan at PM, straight cath PRN for residual > 350 continue IV NSS for now Monitor urine output (5) Lung cancer: H/O squamous cell lung cancer s/p right upper lobectomy in 01/2020. Pt did not have chemo or radiation per patient preference. Follows with [facility] -Not on oxygen at home -Continue home inhalers, albuterol nebs prn (6) Hyperlipidemia: -Continue simvastatin DVT Prophylaxis -SCDs per ortho Follows with Dr Rik Flood in [place] for routine care Thank you for this consultation. We will follow the patient with you during their hospital stay. You can reach a member of the [facility] Hospitalist Team 14/04 via pager @ [phone]. Admission and Anticipated Discharge Date Admission Date: June 02, 2020 Subjective ff up s/p Lumbar Spine surgery seen resting in bed, comfortable reports nausea this AM, resolved no abdominal pain no chest pain, dyspnea, palpitations back pain well controlled by meds no other symptoms Review of Systems Review of Systems: All systems reviewed & are unremarkable except as noted in HPI & below Physical Exam Physical Exam: General- oriented x 3, not in distress, speaks in sentences with no effort or accessory muscle use Eyes- anicteric Neck- no JVD Lungs- clear breath sounds bilaterally, no rales/wheezes Heart- normal rate, regular rhythm; no murmurs Abdomen- normal bowel sounds, nondistended, soft, nontender Extremities- no pretibial edema, no calf tenderness Neuro- alert, oriented x 3; no gross focal neurologic deficits Skin- warm & dry Results & Data Results & Data ([facility]) Vital Signs (Past 12 Hours) Vital Signs Temp Pulse Resp BP Pulse Ox 06/04/20 15:48 67 16 170/88 H 94 06/04/20 08:05 37.1 C 68 18 128/75 95 Laboratory Results Laboratory Results - last 24 hr 06/04/20 06/04/20 05:28 05:28 WBC 7.61 RBC 2.99 L Hgb 8.5 L Hct 26.9 L MCV 90.0 MCH 28.4 MCHC 31.6 L RDW Std Deviation 56.9 H RDW Coeff of Latesha 17.3 H Plt Count 156 MPV 10.5 H Immature Gran % (Auto) 0.1 Neut % (Auto) 64.5 Lymph % (Auto) 19.6 [place] % (Auto) 15.2 Eos % (Auto) 0.5 Baso % (Auto) 0.1 Neut # (Auto) 4.90 Lymph # (Auto) 1.49 [place] # (Auto) 1.16 H Eos # (Auto) 0.04 Baso # (Auto) 0.01 Immature Gran # (Auto) 0.01 Sodium 138 Potassium 4.8 Chloride 109 H Carbon Dioxide 23 Anion Gap 6.0 BUN 22 H Creatinine 0.62 Est Cr Clr Drug Dosing 67.0 Est GFR ( Amer) 102.2 Est GFR (Non-Af Amer) 88.2 BUN/Creatinine Ratio 34.7 H Glucose 97 Calcium 8.4 L
[2020-06-04] MEDS: SIMVASTATIN 40 MG TAB PO SCH (20:04)
[2020-06-04] MEDS: TACROLIMUS 1 MG CAP PO SCH (20:04)
[2020-06-04] MEDS: DOCUSATE SODIUM/SENNA 50/8.6MG TAB PO SCH (20:04)
[2020-06-04] MEDS: EZETIMIBE 10 MG TABLET PO SCH (20:05)
[2020-06-05] MEDS: POLYETHYLENE (MIRALAX) 17 GM PACK PO SCH ×4 (05:58→23:33)
[2020-06-05] MEDS: SODIUM CHLORIDE 0.9% 1000ML 1,000 ML IV SCH (05:59)
[2020-06-05] MEDS: GABAPENTIN 100 MG CAP PO SCH ×2 (08:41→19:47)
[2020-06-05] MEDS: UMECLIDINIUM/VILANTEROL 62.5/25MCG 7 PUFFS/INHALER INH SCH (08:41)
[2020-06-05] MEDS: TACROLIMUS 0.5 MG CAP PO SCH (08:41)
[2020-06-05] MEDS: ASPIRIN 81 MG ECTAB PO SCH (08:42)
[2020-06-05] MEDS: HydrALAZINE TAB 50 MG TAB PO SCH ×2 (08:42→19:46)
[2020-06-05] MEDS: METOPROLOL TARTRATE 25 MG TAB PO SCH ×2 (08:42→19:46)
[2020-06-05] MEDS: DEXAMETHASONE SOD PHOSPHATE 8 MG in SYRINGE 0 ML IV SCH (08:42)
[2020-06-05] MEDS: MYCOPHENOLATE MOFETIL 250 MG CAP PO SCH ×2 (08:42→19:46)
--- NOTE | 2020-06-05 08:48 | Hospitalist Progress Note ---
Date of Service June 05, 2020 Assessment & Plan (1) Status post lumbar surgery: Post op day# 3 S/P L3-L5 decompression and fusion by Dr Vizcrara Stable overall Hgb stable at 8.5 Transfuse for hemoglobin below 7 (2) Acute blood loss anemia: Hemoglobin stable at 8.5; Pre-op Hgb: 12 Transfuse for hemoglobin below 7 (3) Hypertension: H/O Labile HTN -Continue hydralazine, metoprolol tartrate -Hold furosemide for now to prevent hypotension, dehydration (4) Kidney transplant status: S/P Right kidney transplant in 2005 in [place]. Currently following with nephrology in [place] Pre-op BUN: 16, Cr: 0.96, GFR: 58 Renal function stable Dysuria was likely secondary to Huertas catheter removal. No further dysuria. Pt with decreased oral fluid intake and lower urine output. Continue IVF. No significant urinary retention on bladder scans Continue to monitor urine output (5) Lung cancer: H/O squamous cell lung cancer s/p right upper lobectomy in 01/2020. Pt did not have chemo or radiation per patient preference. Follows with [facility] -Not on oxygen at home -Continue home inhalers, albuterol nebs prn (6) Hyperlipidemia: -Continue simvastatin DVT Prophylaxis -SCDs per ortho Follows with Dr Rik Flood in [place] for routine care Thank you for this consultation. We will follow the patient with you during their hospital stay. You [facility] via pager @ [phone]. Admission and Anticipated Discharge Date Admission Date: June 02, 2020 Supervising Physician Co-Signing Physician Notes Attending Addendum: care coordinated with SHIMA Sosa please refer to her notes for full details, I agree with her notes patient seen and examined, records reviewed by myself as well on exam, patient seen resting in chair, comfortable, in good spirits Denies chest pain, shortness of breath, dizziness, nausea, abdominal pain States urine output is similar to when she is at home no other symptoms VS noted and reviewed oriented x 3, not in distress, speaks in sentences with no effort nor accessory muscle use normal rate, regular rhythm, no murmurs clear breath sounds bilaterally non distended, soft, nontender no bipedal edema, erythema, warmth no neuro deficits K 5.5 crea 0.74 ASSESSMENT AND PLAN s/p Back Surgery stable overall History of Renal Transplant reports urine output is baseline now d/c IV fluids repeat Crea, K, HCO3 in AM other diagnoses and plan of care as per SHIMA Javier MD Subjective Pt seen and examined. Sitting up in bed. Reports no BM yet. Is passing flatus. She reports doesn't eat or drink much at baseline. No further dysuria. Denies abdominal pain, vomiting. Back pain moderately controlled. Denies paresthesias or leg pain. Denies fever/chills, ROBLES, dizziness, CP, SOB, extremity edema, rashes, other urinary symptoms Review of Systems Review of Systems: All systems reviewed & are unremarkable except as noted in HPI & below Physical Exam Physical Exam: General: no distress, WDWN Head: normocephalic, atraumatic Eyes: conjunctiva non-injected, anicteric ENT: normal inspection external ears, nose, mucous membranes moist Neck: supple, trachea midline Lungs: clear, no respiratory distress CV: RRR, no murmur, no pretibial edema Abd: normal BS x 4 quads, soft, non-tender Back: dressing in place and dry, JESSICA drain with small amount serosanguineous drainage Ext: no cyanosis, no calf tenderness Neuro: A&O x 3, no focal deficits noted, normal affect Skin: warm, dry Results & Data Results & Data ([facility]) Vital Signs (Past 12 Hours) Vital Signs Temp Pulse Resp BP Pulse Ox 06/05/20 06:22 36.7 C 71 16 147/84 H 97 06/04/20 23:00 36.8 C 68 16 136/74 93
[2020-06-05] MEDS: TRAMADOL HCL 50 MG TABLET PO PRN (09:28)
[2020-06-05] MEDS ORDERED: SOD PHOSPHATE/SOD BIPHOSPHATE ENEMA 132 ML BTL PR STA (10:49)
--- NOTE | 2020-06-05 10:50 | Orthopedic Progress Note ---
Date of Service June 05, 2020 Assessment & Plan (1) Neurogenic claudication due to lumbar spinal stenosis: Admission and Anticipated Discharge Date Admission Date: June 02, 2020 At this time we were hoping to get her into rehab. Does not look like insurance will allow this. Subsequently we will arrange for home health. Anticipate discharge tomorrow. Subjective Back pain is controlled leg pain resolved. Physical Exam Physical Exam: On exam she is in bed she has renal strength testing peers comfortable. Results & Data ([facility]) Vital Signs (Past 12 Hours) Vital Signs Temp Pulse Resp BP Pulse Ox 06/05/20 06:22 36.7 C 71 16 147/84 H 97 06/04/20 23:00 36.8 C 68 16 136/74 93
[2020-06-05 17:20] LABS: BUN Creatinine Ratio 32.4 (10-20); Calcium 8.8 mg/dl (8.5-10.1); Creatinine Clr Calc Pharmacy 56.1 ml/min; Est GFR (African American) 91.9; Est GFR (Non-African American) 79.3; Potassium 5.5 mmol/L (3.5-5.1)
[2020-06-05] MEDS ORDERED: HydrALAZINE HCL 20 MG/ML VIAL IV PRN (18:52)
[2020-06-05] MEDS: TACROLIMUS 1 MG CAP PO SCH (19:47)
[2020-06-05] MEDS: DOCUSATE SODIUM/SENNA 50/8.6MG TAB PO SCH (19:47)
[2020-06-05] MEDS: SIMVASTATIN 40 MG TAB PO SCH (19:48)
[2020-06-05] MEDS: EZETIMIBE 10 MG TABLET PO SCH (19:48)
[2020-06-05] MEDS: OXYCODONE HCL IR 5 MG TAB (IMMEDIATE RELEASE) PO PRN (23:32)
[2020-06-06 06:08] LABS: Hematocrit (blood only) 26.6 % (37-47); Hemoglobin 8.6 g/dL (12.0-16.0); Immature Granulocytes # (auto) 0.01 K/uL (0.00-0.02); Immature Granulocytes % (auto) 0.2 %; Lymphocytes # (auto) 0.67 K/uL (1.2-3.4); Lymphocytes % (auto) 12.7 %; Mean Corpuscular Hemoglobin 28.5 pg (25-34); Mean Corpuscular Hgb Conc 32.3 g/dL (32-36); Mean Corpuscular Volume 88.1 fL (80-100); Monocytes # (auto) 0.55 K/uL (0.11-0.59); Monocytes % (auto) 10.4 %; Neutrophils # (auto) 4.06 K/uL (1.4-6.5); Neutrophils % (auto) 76.7 %; Platelet Count 186 K/uL (130-400); Red Blood Count 3.02 M/uL (4.2-5.4); White Blood Count 5.29 K/uL (4.8-10.8)
[2020-06-06 06:37] LABS: BUN Creatinine Ratio 39.3 (10-20); Calcium 8.7 mg/dl (8.5-10.1); Creatinine Clr Calc Pharmacy 62.9 ml/min; Est GFR (African American) 100.2; Est GFR (Non-African American) 86.4; Potassium 5.1 mmol/L (3.5-5.1)
[2020-06-06] MEDS: ASPIRIN 81 MG ECTAB PO SCH (08:49)
[2020-06-06] MEDS: HydrALAZINE TAB 50 MG TAB PO SCH (08:49)
[2020-06-06] MEDS: DEXAMETHASONE SOD PHOSPHATE 8 MG in SYRINGE 0 ML IV SCH (08:49)
[2020-06-06] MEDS: METOPROLOL TARTRATE 25 MG TAB PO SCH (08:49)
[2020-06-06] MEDS: UMECLIDINIUM/VILANTEROL 62.5/25MCG 7 PUFFS/INHALER INH SCH (08:49)
[2020-06-06] MEDS: GABAPENTIN 100 MG CAP PO SCH (08:49)
[2020-06-06] MEDS: TACROLIMUS 0.5 MG CAP PO SCH (08:49)
[2020-06-06] MEDS: MYCOPHENOLATE MOFETIL 250 MG CAP PO SCH (08:49)
[2020-06-06] MEDS: TRAMADOL HCL 50 MG TABLET PO PRN (09:00)
--- NOTE | 2020-06-06 09:22 | Hospitalist Progress Note ---
Date of Service June 06, 2020 Assessment & Plan (1) Status post lumbar surgery: Post op day# 4 S/P L3-L5 decompression and fusion by Dr Vizcarra EBL 100 mL; JESSICA drain to 270 mL Pain/wound management per Ortho Activity and therapy as directed by Ortho Continue to encourage incentive spirometry (2) Acute blood loss anemia: Hemoglobin stable at 8.6; Pre-op Hgb: 12 Transfuse for hemoglobin below 7 Iron studies obtained which revealed iron 25, transferrin 169, ferritin 109 Vitamin B12 and folate levels pending Also likely dilutional component in setting of significant IV fluid administration (3) Hypertension: H/O Labile HTN-blood pressure controlled this morning 137/78 Continue hydralazine, metoprolol tartrate Would resume Lasix at discharge (4) Kidney transplant status: S/P Right kidney transplant in 2005 in [place]. Currently following with nephrology in [place] Pre-op BUN: 16, Cr: 0.96, GFR: 58 Renal function stable at 26 and 0.66 with a GFR 86 Urine output still diminished despite adequate IV fluid administration. She is drinking orally. She does not appear overly dry on exam, renal functions at baseline Would recommend resuming Lasix (5) Lung cancer: H/O squamous cell lung cancer s/p right upper lobectomy in 01/2020. Pt did not have chemo or radiation per patient preference. Follows with [facility] not on oxygen at home continue home inhalers, albuterol nebs prn (6) Hyperlipidemia: Continue simvastatin DVT Prophylaxis SCDs per ortho Follows with Dr Rik Flood in [place] for routine care Patient was seen and examined in collaboration with Dr. Javier, please see addendum Thank you for this consultation. We will follow the patient with you during their hospital stay. You can reach a [facility]04 via pager @ [phone]. Admission and Anticipated Discharge Date Admission Date: June 02, 2020 Supervising Physician Co-Signing Physician Notes Attending Addendum: care coordinated with SHIMA Damico please refer to her notes for full details, I agree with her notes patient seen and examined, records reviewed by myself as well on exam, patient seen resting in bed, comfortable states urine output is the same at baseline no dysuria, problems with urination no SOB, chest pain, dizziness no other symptoms VS noted and reviewed oriented x 3, not in distress, speaks in sentences with no effort nor accessory muscle use normal rate, regular rhythm, no murmurs clear BS BL non distended, soft, nontender trace bipedal edema, erythema, warmth no neuro deficits K 5.5 crea 0.66 ASSESSMENT AND PLAN s/p Back Surgery stable overall History of Renal Transplant reports urine output at baseline now resume Lasix ff up with Emergency Department Coordinator Anemia Fe 25 recommend Iron BID ff up with PCP for Hg, Fe level check other diagnoses and plan of care as per SHIMA Javier MD Subjective Patient was seen and examined in room 303. Follow-up lumbar surgery by Dr. Vizcarra. Patient is sitting upright in bed with no acute complaints. She does complain of 4/10 back pain without radiation pain. Nurses at bedside. She denies any fever, chills, sweats, dizziness, chest pain, shortness breath, cough, nausea, vomiting. Appetite is overall diminished. She is drinking water. She denies any dysuria, increased urgency or frequency with urination; however, her urine output has been diminished. Per nurse patient has been Bladder Scanned but has not required straight catheterization. Patient states she is being discharged today. Review of Systems Review of Systems: All systems reviewed & are unremarkable except as noted in HPI & below Physical Exam Physical Exam: Gen: WD/WN,F NAD, A&O x3 HEENT: Normocephalic, atraumatic, conjunctivae moist, sclerae anicteric, mucous membranes moist. Lung: Clear to Auscultation bilaterally, no wheezes/rales/rhonchi Heart: Regular rate, regular rhythm, no murmurs, rubs, or gallops Abdomen: Soft, NT, ND +BS x 4 Extremities: No edema, lumbar dressing CDI, JESSICA drain with minimal serosanguineous drainage Skin: Warm, no rash, negative turgor. Results & Data Results & Data ([facility]) Vital Signs (Past 12 Hours) Vital Signs Temp Pulse Resp BP Pulse Ox 06/06/20 08:47 137/78 06/06/20 08:19 36.8 C 66 18 178/86 H 94 06/05/20 23:59 36.7 C 65 18 154/74 H 94 Laboratory Results Short CBC 05/23/20 06/02/20 06/03/20 Range/Units 14:05 23:29 05:19 WBC (4.8-10.8) K/uL Hgb (12.0-16.0) g/dL Hct (37-47) % Plt Count (130-400) K/uL Sodium 139 138 138 (136-145) mmol/L BUN 16 21 H 20 H (7-18) mg/dl Creatinine 0.96 0.84 0.80 (0.6-1.2) mg/dl BUN/Creatinine Ratio 17.1 24.7 H 24.7 H (10-20) 06/04/20 06/05/20 06/06/20 Range/Units 05:28 16:06 05:20 WBC 5.29 (4.8-10.8) K/uL Hgb 8.6 L (12.0-16.0) g/dL Hct 26.6 L (37-47) % Plt Count 186 (130-400) K/uL Sodium 138 136 (136-145) mmol/L BUN 22 H 24 H (7-18) mg/dl Creatinine 0.62 0.74 (0.6-1.2) mg/dl BUN/Creatinine Ratio 34.7 H 32.4 H (10-20) 06/06/20 Range/Units 05:20 WBC (4.8-10.8) K/uL Hgb (12.0-16.0) g/dL Hct (37-47) % Plt Count (130-400) K/uL Sodium 134 L (136-145) mmol/L BUN 26 H (7-18) mg/dl Creatinine 0.66 (0.6-1.2) mg/dl BUN/Creatinine Ratio 39.3 H (10-20) BMP 06/05/20 06/06/20 16:06 05:20 Sodium 136 134 L Potassium 5.5 H 5.1 Chloride 109 H 107 Carbon Dioxide 17 L 22 BUN 24 H 26 H Creatinine 0.74 0.66 Glucose 173 H 118 H Calcium 8.8 8.7 Medications Administered Aspirin (Aspirin 81 Mg Ectab) [facility] Stop: 07/03/20 08:59 Last Admin: 06/06/20 08:49 Dose: 81 mg Documented by: [id number] Admin: 06/05/20 08:42 Dose: 81 mg Documented by: [id number] Admin: 06/04/20 07:36 Dose: 81 mg Documented by: [id number] Admin: 06/03/20 08:59 Dose: 81 mg Documented by: [id number] Ezetimibe (Ezetimibe 10 Mg Tablet) 10 mg PO QPM ELMA Stop: 07/02/20 20:59 Last Admin: 06/05/20 19:48 Dose: 10 mg Documented by: [id number] Admin: 06/04/20 20:05 Dose: 10 mg Documented by: [id number] Admin: 06/03/20 20:11 Dose: 10 mg Documented by: [id number] Admin: 06/02/20 19:57 Dose: 10 mg Documented by: [id number] Gabapentin (Gabapentin 100 Mg Cap) 100 mg PO BID ELMA Stop: 07/02/20 20:59 Last Admin: 06/06/20 08:49 Dose: 100 mg Documented by: [id number] Admin: 06/05/20 19:47 Dose: 100 mg Documented by: [id number] Admin: 06/05/20 08:41 Dose: 100 mg Documented by: [id number] Admin: 06/04/20 20:04 Dose: 100 mg Documented by: [id number] Admin: 06/04/20 07:38 Dose: 100 mg Documented by: [id number] Admin: 06/03/20 20:10 Dose: 100 mg Documented by: [id number] Admin: 06/03/20 08:59 Dose: 100 mg Documented by: [id number] Admin: 06/02/20 19:56 Dose: 100 mg Documented by: [id number] Hydralazine HCl (Hydralazine Tab 50 Mg Tab) 50 mg PO BID ELMA Stop: 07/02/20 20:59 Last Admin: 06/06/20 08:49 Dose: 50 mg Documented by: [id number] Admin: 06/05/20 19:46 Dose: 50 mg Documented by: [id number] Admin: 06/05/20 08:42 Dose: 50 mg Documented by: [id number] Admin: 06/04/20 19:59 Dose: 50 mg Documented by: [id number] Admin: 06/04/20 07:37 Dose: 50 mg Documented by: [id number] Admin: 06/03/20 20:10 Dose: 50 mg Documented by: [id number] Admin: 06/03/20 08:59 Dose: 50 mg Documented by: [id number] Admin: 06/02/20 19:56 Dose: 50 mg Documented by: [id number] Hydromorphone HCl (Hydromorphone Inj 0.5 Mg/0.5 Ml Syr) 0.5 mg IV Q3H PRN PRN Reason: MOD pain (scale 4-6) & Pre PT Stop: 06/16/20 12:36 Last Admin: 06/03/20 10:31 Dose: 0.5 mg Documented by: [id number] Dexamethasone Sodium Phosphate (8 mg/ Syringe) 2 mls @ 1 mls/min IV DAILY ELMA Stop: 07/04/20 08:59 Last Admin: 06/06/20 08:49 Dose: 1 mls/min Documented by: [id number] Admin: 06/05/20 08:42 Dose: 1 mls/min Documented by: [id number] Admin: 06/04/20 07:39 Dose: 1 mls/min Documented by: [id number] Menthol (Cough Drop (Sugar Free) Roxana 24 Roxana/1 Box) 1 roxana BUCCAL PRN PRN PRN Reason: Sore Throat Stop: 07/02/20 23:57 Last Admin: 06/03/20 00:24 Dose: 1 roxana Documented by: [id number] Metoprolol Tartrate (Metoprolol Tartrate 25 Mg Tab) 25 mg PO BID ELMA Stop: 07/02/20 20:59 Last Admin: 06/06/20 08:49 Dose: 25 mg Documented by: [id number] Admin: 06/05/20 19:46 Dose: 25 mg Documented by: [id number] Admin: 06/05/20 08:42 Dose: 25 mg Documented by: [id number] Admin: 06/04/20 20:00 Dose: 25 mg Documented by: [id number] Admin: 06/04/20 07:38 Dose: 25 mg Documented by: [id number] Admin: 06/03/20 20:10 Dose: 25 mg Documented by: [id number] Admin: 06/03/20 08:59 Dose: 25 mg Documented by: [id number] Admin: 06/02/20 19:56 Dose: 25 mg Documented by: [id number] Mycophenolate Mofetil (Mycophenolate Mofetil 250 Mg Cap) 250 mg PO BID ELMA Stop: 07/02/20 20:59 Last Admin: 06/06/20 08:49 Dose: 250 mg Documented by: [id number] Admin: 06/05/20 19:46 Dose: 250 mg Documented by: [id number] Admin: 06/05/20 08:42 Dose: 250 mg Documented by: [id number] Admin: 06/04/20 19:59 Dose: 250 mg Documented by: [id number] Admin: 06/04/20 07:35 Dose: 250 mg Documented by: [id number] Admin: 06/03/20 20:09 Dose: 250 mg Documented by: [id number] Admin: 06/03/20 08:59 Dose: 250 mg Documented by: [id number] Admin: 06/02/20 19:56 Dose: 250 mg Documented by: [id number] Ondansetron HCl (Ondansetron Inj 2 Mg/Ml 2 Ml Vial) 4 mg IV Q6H PRN PRN Reason: Nausea &/or Vomiting Stop: 07/02/20 12:36 Last Admin: 06/04/20 05:47 Dose: 4 mg Documented by: [id number] Oxycodone HCl (Oxycodone Hcl Ir 5 Mg Tab (Immediate Release)) 5 - 10 mg PO Q4H PRN PRN Reason: Moderate-Severe Pain & Pre PT Stop: 06/16/20 12:36 Last Admin: 06/05/20 23:32 Dose: 5 mg Documented by: [id number] Admin: 06/03/20 20:08 Dose: 10 mg Documented by: [id number] Admin: 06/03/20 09:06 Dose: 10 mg Documented by: [id number] Admin: 06/03/20 04:09 Dose: 10 mg Documented by: [id number] Admin: 06/02/20 17:21 Dose: 10 mg Documented by: [id number] Admin: 06/02/20 13:16 Dose: 10 mg Documented by: [id number] Senna/Docusate Sodium (Docusate Sodium/Senna 50/8.6mg Tab) 2 tab PO HS ELMA Stop: 07/02/20 20:59 Last Admin: 06/05/20 19:47 Dose: 2 tab Documented by: [id number] Admin: 06/04/20 20:04 Dose: 2 tab Documented by: [id number] Admin: 06/03/20 20:11 Dose: 2 tab Documented by: [id number] Admin: 06/02/20 19:57 Dose: 2 tab Documented by: [id number] Simvastatin (Simvastatin 40 Mg Tab) 40 mg PO PM ELMA Stop: 07/02/20 20:59 Last Admin: 06/05/20 19:48 Dose: 40 mg Documented by: [id number] Admin: 06/04/20 20:04 Dose: 40 mg Documented by: [id number] Admin: 06/03/20 20:11 Dose: 40 mg Documented by: [id number] Admin: 06/02/20 19:58 Dose: 40 mg Documented by: [id number] Tacrolimus (Tacrolimus 0.5 Mg Cap) 0.5 mg PO QAM ELMA Stop: 07/03/20 08:59 Last Admin: 06/06/20 08:49 Dose: 0.5 mg Documented by: [id number] Admin: 06/05/20 08:41 Dose: 0.5 mg Documented by: [id number] Admin: 06/04/20 07:36 Dose: 0.5 mg Documented by: [id number] Admin: 06/03/20 08:59 Dose: 0.5 mg Documented by: [id number] Tacrolimus (Tacrolimus 1 Mg Cap) 1 mg PO QPM ELMA Stop: 07/02/20 20:59 Last Admin: 06/05/20 19:47 Dose: 1 mg Documented by: [id number] Admin: 06/04/20 20:04 Dose: 1 mg Documented by: [id number] Admin: 06/03/20 20:09 Dose: 1 mg Documented by: [id number] Admin: 06/02/20 19:56 Dose: 1 mg Documented by: [id number] Tramadol HCl (Tramadol Hcl 50 Mg Tablet) 50 - 100 mg PO Q4H PRN PRN Reason: Moderate-Severe Pain & Pre PT Stop: 07/02/20 12:36 Last Admin: 06/06/20 09:00 Dose: 100 mg Documented by: [id number] Admin: 06/05/20 09:28 Dose: 100 mg Documented by: [id number] Admin: 06/04/20 05:47 Dose: 100 mg Documented by: [id number] Admin: 06/03/20 22:15 Dose: 100 mg Documented by: [id number] Umeclidinium/Vilanterol (Umeclidinium/Vilanterol 62.5/25mcg 7 Puffs/Inhaler) 1 puffs INH QAM ELMA Stop: 07/03/20 08:59 Last Admin: 06/06/20 08:49 Dose: 1 puffs Documented by: [id number] Admin: 06/05/20 08:41 Dose: 1 puffs Documented by: [id number] Admin: 06/04/20 07:40 Dose: 1 puffs Documented by: [id number] Admin: 06/03/20 08:59 Dose: 1 puffs Documented by: [id number] Discontinued Medications Acetaminophen (Acetaminophen 500 Mg Tab) 1,000 mg PO PREOP ELMA Stop: 06/02/20 18:00 Last Admin: 06/02/20 08:34 Dose: 1,000 mg Documented by: [id number] Bacitracin (Bacitracin Inj 50,000 Unit Vial) Confirm Administered Dose 50,000 units .ROUTE .STK-MED ONE Stop: 06/02/20 08:58 Last Admin: 06/02/20 09:54 Dose: 50,000 units Documented by: [id number] Bupivacaine HCl/Epinephrine Bitart (Bupivacaine/Epinephrine 0.25% 1:200,000 30 Ml Vial) Confirm Administered Dose 30 ml .ROUTE .STK-MED ONE Stop: 06/02/20 08:57 Last Admin: 06/02/20 09:54 Dose: 30 ml Documented by: [id number] Celecoxib (Celebrex 200 Mg Cap) 200 mg PO PREOP ELMA Stop: 06/02/20 18:00 Last Admin: 06/02/20 08:34 Dose: 200 mg Documented by: [id number] Fentanyl Citrate (Fentanyl Citrate 100 Mcg/2 Ml Vial) 50 mcg IV Q5M PRN PRN Reason: PACU Use Only-Pain Stop: 06/02/20 16:53 Last Admin: 06/02/20 11:51 Dose: 50 mcg Documented by: [id number] Admin: 06/02/20 11:42 Dose: 50 mcg Documented by: [id number] Gabapentin (Gabapentin 300 Mg Cap) 300 mg PO PREOP ELMA Stop: 06/02/20 18:00 Last Admin: 06/02/20 08:36 Dose: Not Given Documented by: [id number] Lactated Ringer's (Lr) 1,000 mls @ 15 mls/hr IV .Q24H ELMA Stop: 06/03/20 05:59 Last Infusion: 06/02/20 09:15 Dose: 0 mls/hr Documented by: [id number] Admin: 06/02/20 08:34 Dose: 15 mls/hr Documented by: [id number] Cefazolin Sodium (Ancef 1000mg) 1,000 mg in 7.5 mls @ 2.5 mls/min IV PREOP ELMA; Protocol Stop: 06/02/20 18:00 Last Admin: 06/02/20 13:07 Dose: Not Given Documented by: [id number] Cefazolin Sodium (Ancef 1000mg) 1,000 mg in 7.5 mls @ 150 mls/hr IV Q8H ELMA; Protocol Stop: 06/03/20 00:02 Last Admin: 06/02/20 23:45 Dose: 150 mls/hr Documented by: [id number] Admin: 06/02/20 16:54 Dose: 150 mls/hr Documented by: [id number] Sodium Chloride (Nss 1000ml) 1,000 mls @ 100 mls/hr IV .Q10H ELMA Stop: 07/02/20 12:59 Last Infusion: 06/03/20 05:35 Dose: 0 mls/hr Documented by: [id number] Admin: 06/02/20 22:31 Dose: 100 mls/hr Documented by: [id number] Infusion: 06/02/20 22:31 Dose: 100 mls/hr Documented by: [id number] Admin: 06/02/20 13:07 Dose: 100 mls/hr Documented by: [id number] Sodium Chloride (Nss 1000ml) 1,000 mls @ 125 mls/hr IV .Q8H ONE Stop: 06/03/20 14:35 Last Infusion: 06/03/20 17:08 Dose: 0 mls/hr Documented by: [id number] Infusion: 06/03/20 16:28 Dose: 125 mls/hr Documented by: [id number] Admin: 06/03/20 07:01 Dose: 75 mls/hr Documented by: [id number] Sodium Chloride (Nss 1000ml) 1,000 mls @ 75 mls/hr IV .[id number] ELAM Stop: 07/03/20 16:29 Last Infusion: 06/05/20 19:41 Dose: 0 mls/hr Documented by: [id number] Admin: 06/05/20 05:59 Dose: 75 mls/hr Documented by: [id number] Infusion: 06/05/20 05:59 Dose: 75 mls/hr Documented by: [id number] Admin: 06/04/20 17:01 Dose: 75 mls/hr Documented by: [id number] Infusion: 06/04/20 17:01 Dose: 75 mls/hr Documented by: [id number] Infusion: 06/04/20 16:06 Dose: 75 mls/hr Documented by: [id number] Admin: 06/04/20 09:25 Dose: 125 mls/hr Documented by: [id number] Infusion: 06/04/20 09:23 Dose: 0 mls/hr Documented by: [id number] Infusion: 06/04/20 06:28 Dose: 125 mls/hr Documented by: [id number] Admin: 06/04/20 01:13 Dose: 125 mls/hr Documented by: [id number] Infusion: 06/04/20 01:08 Dose: 125 mls/hr Documented by: [id number] Admin: 06/03/20 17:08 Dose: 125 mls/hr Documented by: [id number] Miscellaneous ( Floseal Hemostatic Matrix 10ml) 20 ml TOP ONCE ONE Stop: 06/02/20 09:57 Last Admin: 06/02/20 13:08 Dose: Not Given Documented by: [id number] Polyethylene Glycol (Polyethylene (Miralax) 17 Gm Pack) 17 gm PO Q6 ELMA Stop: 07/03/20 05:59 Last Admin: 06/05/20 23:33 Dose: Not Given Documented by: [id number] Admin: 06/05/20 18:41 Dose: Not Given Documented by: [id number] Admin: 06/05/20 13:00 Dose: 17 gm Documented by: [id number] Admin: 06/05/20 05:58 Dose: 17 gm Documented by: [id number] Admin: 06/04/20 23:47 Dose: Not Given Documented by: [id number] Admin: 06/04/20 17:01 Dose: 17 gm Documented by: [id number] Admin: 06/04/20 11:28 Dose: 17 gm Documented by: [id number] Admin: 06/04/20 05:43 Dose: 17 gm Documented by: [id number] Admin: 06/04/20 00:08 Dose: Not Given Documented by: [id number] Admin: 06/03/20 17:08 Dose: 17 gm Documented by: [id number] Admin: 06/03/20 12:17 Dose: 17 gm Documented by: [id number] Admin: 06/03/20 05:36 Dose: 17 gm Documented by: [id number] Sodium Biphosphate/Sodium Phosphate (Sod Phosphate/Sod Biphosphate Enema 132 Ml Btl) 132 ml [place] NOW STA Stop: 06/05/20 10:50 Last Admin: 06/05/20 13:00 Dose: 132 ml Documented by: [id number]
--- NOTE | 2020-06-06 11:15 | Discharge Summary ---
Date of Service June 06, 2020 Admission HPI Per Admitting Provider This is a 75-year-old presents with chronic persistent back and leg pain after failing course of non-care is here for surgical intervention. Principal Diagnosis Lumbar spinal stenosis with neurogenic claudication Discharge Data Allergies Allergy/AdvReac Type Severity Reaction Status Date / Time No Known Allergies Allergy Verified 06/02/20 08:18 Consultations 06/02/20 12:37 Consult Case Management - Discharge Planning Routine Consult Hospitalist Routine Procedures Performed Operation Date: 06/02/20 09:15 Actual Procedures p L3-L5 Decompression and Fusion with bone morphogenice protein and interbody L4-5, Left L4-L5 Discectomy, Spinal Cord Monitoring(Not Applicable) - Phi Vizcarra DO Ordered Studies 06/02/20 09:15 FL fluoroscopy <1hr Routine FL lumbar spine 2-3V Routine Hospital Course (1) Neurogenic claudication due to lumbar spinal stenosis: Patient with multilevel lumbar decompression fusion tolerated well second orthopedic for postoperative. Postop day 1 she was up and ambulating progressed to postop day #2 and 3 JESSICA drain decreasing probably. Pain well controlled. Bowels working well. Excellent strength testing. Separately discharged home. Discharge orders instructions from the chart for further review. Total Time Total Time Spent Total Time Spent (In Minutes): 20 minutes Discharge Plan Discharge Items Patient Disposition: Home - Home Health Services Reason For Visit: Spinal Stenosis Discharge Diagnosis: Lumbar spinal stenosis with neurogenic claudication Activity: As commented below Non-emergency contact: Primary Care Provider Call non-emergency contact if: you have any medication questions Follow-up/Referrals: Rik Flood MD [Primary Care Provider] - Diet: Regular Addtl Attending Provider Instructions: ACTIVITY RECOMMENDATIONS: SELF CARE INSTRUCTIONS AFTER THORACIC/LUMBAR FUSIONS 1. You may walk to your tolerance. It is good exercise for your legs and back. Expect some back and intermittent leg aches and pains. 2. You may perform "counter-top" level activities (make a sandwich, lino with a project, etc.). 3. No bending or lifting of more than 10 pounds or back twisting of any nature (roll like a log when turning in bed). 4. You may ride in a car for 20-30 minutes at a time. No driving until after your first visit with your doctor. 5. Frequent changes of position and restricting sitting to 30 minutes at a time will help limit the amount of back spasms and stiffness you may experience. 6. You may discontinue the use of ambulatory aids (cane, crutches, etc.) once your strength and confidence allow. 7. You may navigating officer the shower and let water strike your incision when you arrive home at least once daily. Do not take a tub bath, sit in a hot tub or go into a swimming pool until after your first recheck in the office. SPECIAL CARE INSTRUCTIONS: VERY IMPORTANT TO READ AND REVIEW A. Your surgical incision has been closed with a cosmetic suture under the skin that will dissolve in about 6 weeks. In 14 days, you can use a pair of clean scissors and cut the suture that is left outside of the skin at the ends of your incision. 1. The small skin tapes can be removed 7 days after surgery if they have not fallen off by that point. 2. You may keep the wound open to air as much as possible to promote healing after post-op day number 5 unless told otherwise by your doctor. 3. If you think the wound looks like it is becoming infected (redness or worsening drainage) and/or you are experiencing fever, chill or worsening back pain and muscle spasms, contact the office so that we may evaluate you as soon as possible. B. Complications are uncommon, but please contact us if you have any signs or symptoms of: 1. wound infection (fever higher than 102.5 degrees F, redness, separation of wound, drainage, or increasing pain from the incision) 2. blood clots in legs (pain, swelling, redness and warmth in legs) 3. urinary tract infection (fever higher than 102.5 degrees F, burning upon urination or increased frequency of urination) 4. nerve problems (inability to walk on your toes or heels, numbness, loss of bowel or bladder control) 5. any other symptoms that concern you C. Please call the office at if you have any concerns or questions about your operation or recovery. D. No smoking! Smoking drastically decreases the chance of a solid fusion. E. Do not take any anti-inflammatory medications (Indocin, Advil, Motrin, Aspirin, Naprosyn, etc.) as these may inhibit the chance of a solid fusion. Tylenol is okay to take for pain. MANAGING PAIN AFTER SPINAL SURGERY 1. Narcotic medication is intended for short-term use and will be provided for surgical pain. Surgical pain usually lasts for a period of 4-6 weeks. Narcotic medication includes Percocet, Vicodin, Darvocet, Tylenol #3 or Lortab. 2. Longer-term pain is more appropriately treated with non-narcotic medication such as Tylenol ES. 3. Muscle spasm is not appropriately treated with narcotics. Muscle relaxers such as Soma, Flexeril or Skelaxin can be used along with Tylenol ES. 4. Remember that we all live with some "aches and pains". This is not unusual or uncommon after an injury or as we get older. a. Back pain is expected and may include muscle spasms for 4 to 6 weeks after surgery. The pain should gradually improve. If the pain worsens for no apparent reason, please contact the office. b. Intermittent leg pain may also be experienced and should not be concerned about unless it worsens for no apparent reason. If so, please contact the office. 5. We will provide appropriate medication within the normal guidelines of their prescribed use. We will also be very cautious and aware of potential abuse and extended duration of patients' medication needs. a. Pain medications are for your comfort and to assist with sleep and rest so that the tissue can heal. They are not provided in order to return to normal activity and should not be used through the day. To do so or worsening pain at night can result from ongoing tissue damage and development of tolerance to the prescribed medicine. 6. Please allow 2-3 days to process refills. Prescriptions will not be mailed but must be picked up at the office. FOLLOW UP VISIT: Keep your scheduled follow-up appointment. Any questions, please call the office at . Pending Studies at Discharge: No Stand-Alone Forms: My [facility], Smoking Cessation Medications and DC Order Prescriptions: New tramadol 50 mg tablet 50 mg PO Q6H PRN (Reason: pain, moderate) Qty: 20 RF: 0 oxycodone 5 mg tablet 5 mg PO Q6H PRN (Reason: pain, severe) Qty: 20 RF: 0 Continued furosemide 40 mg Tablet 40 mg PO Q2D RF: 0 mycophenolate mofetil 250 mg Capsule 250 mg PO BID RF: 0 ergocalciferol (vitamin D2) [Vitamin D2] 10 mcg (400 unit) Tablet 10 mcg PO QAM RF: 0 hydralazine 25 mg Tablet 50 mg PO BID RF: 0 aspirin [Aspir-81] 81 mg Tablet,Delayed Release (Dr/Ec) 81 mg PO QAM RF: 0 simvastatin 40 mg Tablet 40 mg PO PM RF: 0 albuterol sulfate 90 mcg/actuation Hfa Aerosol Inhaler 1 puff INHALATION Q6H PRN (Reason: Wheezing) RF: 0 tacrolimus 1 mg Capsule 1 mg PO QPM RF: 0 tacrolimus 0.5 mg Capsule 0.5 mg PO QAM RF: 0 ezetimibe 10 mg Tablet 10 mg PO QPM RF: 0 metoprolol tartrate 25 mg Tablet 25 mg PO BID RF: 0 Anoro Ellipta 62.5-25 mcg/actuation Blister With Device 1 inh INHALATION QAM RF: 0 gabapentin 100 mg Capsule 100 mg PO BID RF: 0 Discharge Orders: Discharge Order (Routine); Ordered 06/06/20 Ordered By: Phi Vizcarra Admission Data Admit Date/Time: 06/02/20 11:38 Attending Provider: Phi Vizcarra Admit Provider: Phi Vizcarra Primary Care Provider: Rik Flood Other Providers: Hebert Valenzuela ; Zeferino Javier ; [facility]
[2020-06-06 13:19] LABS: Folate (Folic Acid) 7.28 ng/ml (>5.38)
== END 2020-06-06 17:22 | disposition home health service (06) | DRG 454 ==
LOC: ASU 07:52 → 3E 11:38